=== PATIENT | female | born 1990 | race Hispanic/Latino ===

== ENCOUNTER 2022-03-04 07:05 | Emergency (ER) | payer BC, MEDICAID ==
[~2022-03-04] VITALS: Ht 165.1 cm; Wt 91.6 kg
[2022-03-04 07:14] VITALS: BP 96/74
[2022-03-04] MEDS ORDERED: CEFTRIAXONE 1G VIAL IM STA (07:32)
[2022-03-04] MEDS ORDERED: LIDOCAINE HCL 1% 20 ML VIAL INJ STA (07:53)
[2022-03-04] MEDS ORDERED: LIDOCAINE HCL 1% 10 ML VIAL ONE (07:55)
[2022-03-04] MEDS ORDERED: CEPH500B PO (08:15)
== END 2022-03-04 08:25 | disposition home or self-care (01) ==
LOC: EDH 07:05
DX: L02.31 Cutaneous abscess of buttock (principal); Z98.890 Other specified postprocedural states
CPT/HCPCS: 99283; 10060; 87076; 96372; J0696; J3490

== ENCOUNTER 2022-06-17 14:51 | Emergency (ER) | payer OTHER, BC, MEDICAID ==
[~2022-06-17] VITALS: Ht 165.1 cm; Wt 90.7 kg
[~2022-06-17 14:51] MED LIST: CEPH500B PO
[2022-06-17 17:43] VITALS: BP 142/87
[2022-06-17] MEDS ORDERED: AMOX1TAB16 PO (17:57)
== END 2022-06-17 18:05 | disposition home or self-care (01) ==
LOC: EDH 14:51
DX: M25.532 Pain in left wrist (principal); W50.3XXA Accidental bite by another person, initial encounter; Y93.89 Activity, other specified; Y92.89 Other specified places as the place of occurrence of the external cause; Y99.8 Other external cause status

== ENCOUNTER 2022-12-19 10:30 | Emergency (ER) | payer BC, MEDICAID, OTHER ==
[~2022-12-19] VITALS: Ht 167.6 cm; Wt 101.6 kg
[~2022-12-19 10:30] MED LIST changes: +AMOX1TAB16 PO
[2022-12-19] MEDS ORDERED: ONDANSETRON ODT 4MG TAB SL ONE (12:00)
[2022-12-19] MEDS ORDERED: ASPIRIN 325MG TAB PO ONE (12:00)
[2022-12-19 12:01] LABS: BASOPHILS # (AUTO) 0.02 K/uL (0.00-0.20); BASOPHILS % (AUTO) 0.3 % (0.0-5.0); EOSINOPHILS # (AUTO) 0.06 K/uL (0.00-0.70); EOSINOPHILS % (AUTO) 0.9 % (0.0-8.0); HEMATOCRIT 38.5 % (36-48); IMMATURE GRANULOCYTE ABSOLUTE 0.03 K/uL (0-1); LYMPHOCYTES # (AUTO) 1.7 K/uL (1.0-4.8); LYMPHOCYTES % (AUTO) 25.3 % (21.0-51.0); MEAN CORPUSCULAR HEMOGLOBIN 26.4 pg (27.0-33.0); MEAN CORPUSCULAR HGB CONC 31.9 g/dL (32.0-36.0); MEAN CORPUSCULAR VOLUME 82.6 fL (79-99); MONOCYTES # (AUTO) 0.5 K/uL (0.1-1.0); MONOCYTES % (AUTO) 6.7 % (3.0-13.0); NEUTROPHILS # (AUTO) 4.5 K/uL (1.8-7.7); NEUTROPHILS % (AUTO) 66.4 % (40.0-77.0); PLATELET COUNT (AUTO) 251 K/uL (130-400); RED BLOOD CELL COUNT(AUTO) 4.66 MIL/uL (4.00-5.50); WHITE BLOOD COUNT (AUTO) 6.7 K/uL (4.8-10.8)
[2022-12-19 12:17] LABS: CREATININE 0.6 mg/dL (0.5-1.5)
[2022-12-19 12:22] VITALS: BP 128/88; PULSE 78; RESP 16; O2SAT 97
[2022-12-19 12:32] LABS: APPEARANCE,URINE CLEAR (CLEAR); BILIRUBIN,URINE NEGATIVE (NEGATIVE); COLOR,URINE LIGHT-YELLOW (YELLOW); GLUCOSE, URINE (UA) NEGATIVE (NEGATIVE); KETONES,URINE NEGATIVE (NEGATIVE); LEUKOCYTE ESTERASE ,URINE NEGATIVE Leu/uL (NEGATIVE); NITRATE,URINE NEGATIVE (NEGATIVE); OCCULT BLOOD,URINE NEGATIVE (NEGATIVE); PROTEIN,URINE NEGATIVE (NEGATIVE); UROBILINOGEN,URINE 3 mg/dL (0.2-1.0)
[2022-12-19 12:45] LABS: ADD UA MICROSCOPIC YES
[2022-12-19] MEDS ORDERED: KETOROLAC 30MG VIAL (30MG/ML) IM ONE (13:00)
[2022-12-19 13:01] LABS: MUCUS,URINE RARE LPF (None Seen); OTHER CASTS, URINE 3 /LPF (None Seen); RBC,URINE 0-1 /HPF (0-1); SQUAMOUS EPITHELIAL CELL,UR MOD /HPF (0-2)
== END 2022-12-19 12:53 | disposition home or self-care (01) ==
LOC: EDH 10:30
DX: R07.89 Other chest pain (principal); K21.9 Gastro-esophageal reflux disease without esophagitis; E66.9 Obesity, unspecified; Z79.899 Other long term (current) drug therapy
CPT/HCPCS: 99285; 71045; 83735; 84484; 80048; 84703; 85025; 81001; 36415; 96372; 93005; J1885